=== PATIENT | male | born 1995 | race Two or more races ===

== ENCOUNTER 2016-12-16 12:11 | Emergency (ER) | payer MEDICAID, OTHER ==
[~2016-12-16] VITALS: Ht 165.1 cm; Wt 74.8 kg
[~2016-12-16 12:11] MED LIST: IBUPROFEN 600 MG TAB PO ONE
[2016-12-16 12:18] VITALS: BP 117/79
[2016-12-16] MEDS ORDERED: IBUPROFEN 600 MG TAB PO ONE (12:30)
== END 2016-12-16 14:00 | disposition home or self-care (01) ==
LOC: ER 12:11
DX: S90.32XA Contusion of left foot, initial encounter (principal); W22.8XXA Striking against or struck by other objects, initial encounter; Y93.89 Activity, other specified; Y99.0 Civilian activity done for income or pay; Y92.69 Other specified industrial and construction area as the place of occurrence of the external cause
CPT/HCPCS: 73610; 73630

== ENCOUNTER → 2019-10-21 | Emergency (ER) | payer MEDICAID, OTHER ==
[~2019-10-21] VITALS: Ht 167.6 cm; Wt 86.2 kg
[~2019-10-21] MED LIST changes: -IBUPROFEN 600 MG TAB PO ONE; +SODIUM CHLORIDE 0.9% 1,000 ML IV ONE; +TETANUS-DIPTH-ACEL PERTUSSIS 0.5ML SYR Tdap IM ONE
[2019-10-21 03:29] VITALS: BP 137/86
== END | disposition home or self-care (01) ==
LOC: ER 00:33
DX: S02.2XXA Fracture of nasal bones, initial encounter for closed fracture (principal); S05.12XA Contusion of eyeball and orbital tissues, left eye, initial encounter; F10.10 Alcohol abuse, uncomplicated; W18.00XA Striking against unspecified object with subsequent fall, initial encounter; Y93.89 Activity, other specified; Y92.89 Other specified places as the place of occurrence of the external cause; Y99.8 Other external cause status; Y90.9 Presence of alcohol in blood, level not specified
CPT/HCPCS: 36415; 70450; 70480; 72125; 80320; 90471; 90715